=== PATIENT | male | born 1985 | race American Indian/Alaskan Native ===

== ENCOUNTER 2020-12-01 02:43 | Emergency (ER) | payer MEDICAID ==
--- NOTE | 2020-12-01 03:50 | Event Note ---
ED Screening Note Date of service: 12/01/20 Time: 03:50 ED Screening Note: Patient here with complaints of shoulder and hip pain due to sickle cell This initial assessment/diagnostic orders/clinical plan/treatment(s) is/are subject to change based on patients health status, clinical progression and re- assessment by fellow clinical providers in the ED. Further treatment and workup at subsequent clinical providers discretion. Patient/guardian urged not to elope from the ED as their condition may be serious if not clinically assessed and managed. Initial orders include: Labs
[2020-12-01 04:45] LABS: Hematocrit 30.4 % (35.5-45.6); Hemoglobin 10.1 gm/dl (11.8-15.2); Mean Corpuscular HGB Conc 33 % (32-34); Mean Corpuscular Volume 104 fl (84-94); Platelet Count 432 K/mm3 (140-440); Red Blood Count 2.94 M/mm3 (3.65-5.03); Red Cell Distribution Width 16.4 % (13.2-15.2)
[2020-12-01 04:47] LABS: Basophils % (Auto) 2.1 % (0.0-1.8); Eosinophils % (Auto) 2.5 % (0.0-4.3); Lymphocytes % (Auto) 42.5 % (13.4-35.0); Monocytes % (Auto) 11.9 % (0.0-7.3)
[2020-12-01 04:48] LABS: Basophils # (Auto) 0.2 K/mm3 (0.0-0.1); Eosinophils # (Auto) 0.3 K/mm3 (0.0-0.4); Lymphocytes # (Auto) 4.5 K/mm3 (1.2-5.4); Monocytes # (Auto) 1.3 K/mm3 (0.0-0.8)
[2020-12-01 05:00] LABS: Alanine Aminotransferase 15 units/L (7-56); Albumin 4.6 g/dL (3.9-5); BUN/Creatinine Ratio 13; Blood Urea Nitrogen 13 mg/dL (9-20); Hemolysis Index 10
[2020-12-01 06:54] LABS: Bilirubin,Urine NEG (Negative); Blood,Urine NEG (Negative); Color,Urine Yellow (Yellow); Protein,Urine <15 mg/dL mg/dL (Negative); WBC,Urine < 1.0 /HPF (0.0-6.0)
[2020-12-01] MEDS ORDERED: diphenhydrAMINE 50 MG/ML VIAL IV ONE (07:58)
[2020-12-01] MEDS ORDERED: ONDANSETRON 4 MG/2 ML INJ IV ONE (07:58)
[2020-12-01] MEDS ORDERED: KETOROLAC 30 MG/1 ML INJ IV ONE (07:58)
[2020-12-01] MEDS ORDERED: HYDROmorphone 1 MG/1 ML INJ IV ONE ×2 (07:58→10:20)
[2020-12-01] MEDS ORDERED: diphenhydrAMINE 50 MG/ML VIAL ONE (08:05)
--- NOTE | 2020-12-01 08:05 | Emergency Department Report ---
ED General Adult HPI - General Chief complaint: Sickle Cell Crisis Stated complaint: SICKLE CELL PAIN Time Seen by Provider: 12/01/20 07:49 Source: patient Mode of arrival: Ambulatory Limitations: No Limitations - History of Present Illness Initial comments: 35-year old male with a past medical history of sickle cell SS and chronic pain to bilateral shoulders and bilateral hips secondary to avascular necrosis presents to the hospital complaining of exacerbation of chronic shoulder and hip pain x1 week. Patient currently takes oxycodone 10 mg ER and Percocet 10/325 as prescribed by [facility]. Patient attempted to follow-up with [facility] but the wait was too long. Patient denies fever, cough, or shortness of breath. Pt did not take any of his meds this am. Severity scale (0 -10): 8 - Related Data Home Medications Medication Instructions Recorded Confirmed Last Taken Folic Acid [Folvite] 1 mg PO QDAY 06/30/15 12/01/20 Unknown Amlodipine Besylate [Norvasc] 5 mg PO DAILY 12/01/20 12/01/20 Unknown oxyCODONE ER [oxyCONTIN ER] 10 mg PO BID 12/01/20 12/01/20 Unknown Previous Rx's Medication Instructions Recorded Last Taken Type HYDROcodone/APAP 10-325 [[place] 1 each PO Q8HR PRN #20 tablet 07/01/15 Unknown Rx 10/325] Allergies Allergy/AdvReac Type Severity Reaction Status Date / Time ceftriaxone sodium Allergy Swelling Verified 06/30/15 20:34 [From Rocephin] morphine Allergy Swelling Verified 12/01/20 03:36 ED Review of Systems ROS: Stated complaint: SICKLE CELL PAIN Other details as noted in HPI Comment: All other systems reviewed and negative ED Past Medical Hx - Past Medical History Previous Medical History?: Yes Hx Hypertension: Yes Hx Sickle Cell Disease: Yes (type SS) - Surgical History Past Surgical History?: No - Social History Smoking Status: Never Smoker Substance Use Type: Marijuana - Medications Home Medications: Home Medications Medication Instructions Recorded Confirmed Last Taken Type Folic Acid [Folvite] 1 mg PO QDAY 06/30/15 12/01/20 Unknown History HYDROcodone/APAP 10-325 [[place] 1 each PO Q8HR PRN #20 tablet 07/01/15 12/01/20 Unknown Rx 10/325] Amlodipine Besylate [Norvasc] 5 mg PO DAILY 12/01/20 12/01/20 Unknown History oxyCODONE ER [oxyCONTIN ER] 10 mg PO BID 12/01/20 12/01/20 Unknown History ED Physical Exam - General Limitations: No Limitations - Other Other exam information: General: No acute distress Head: Atraumatic Eyes: normal appearance ENT: Moist mucous membranes Neck: Normal appearance, no midline tenderness Chest: Clear to auscultation bilaterally CV: Regular rate and rhythm Abdomen: Soft, normal bowel sounds, nontender, nondistended, no rebound or guarding Back: Normal inspection Extremity: Tenderness to bilateral joint space/anterior shoulder shoulders. Limited movement secondary to pain. Pain to bilateral hips worse with movement. Neuro: Alert O x 3, no facial asymmetry, speech clear, no gross motor sensory deficit Psych: Appropriate behavior Skin: No rash ED Course Vital Signs 12/01/20 12/01/20 12/01/20 03:34 07:28 07:29 Temperature 98.0 F Pulse Rate 74 73 Respiratory 20 16 16 Rate Blood Pressure 115/73 Blood Pressure [Right] O2 Sat by Pulse 100 100 Oximetry 12/01/20 12/01/20 12/01/20 07:37 07:51 08:18 Temperature Pulse Rate 71 70 69 Respiratory 16 16 Rate Blood Pressure Blood Pressure 129/84 126/81 134/85 [Right] O2 Sat by Pulse 100 100 Oximetry 12/01/20 12/01/20 12/01/20 09:08 09:44 10:26 Temperature Pulse Rate 68 71 88 Respiratory 16 16 16 Rate Blood Pressure Blood Pressure 117/78 117/78 113/79 [Right] O2 Sat by Pulse 100 99 99 Oximetry ED Medical Decision Making - Lab Data Result diagrams: 12/01/20 04:02 12/01/20 04:02 Lab Results 12/01/20 12/01/20 12/01/20 Range/Units 04:02 04:02 Unknown WBC 10.6 (4.5-11.0) K/mm3 RBC 2.94 L (3.65-5.03) M/mm3 Hgb 10.1 L (11.8-15.2) gm/dl Hct 30.4 L (35.5-45.6) % MCV 104 H (84-94) fl MCH 34 H (28-32) pg MCHC 33 (32-34) % RDW 16.4 H (13.2-15.2) % Plt Count 432 (140-440) K/mm3 Lymph % (Auto) 42.5 H (13.4-35.0) % [place] % (Auto) 11.9 H (0.0-7.3) % Eos % (Auto) 2.5 (0.0-4.3) % Baso % (Auto) 2.1 H (0.0-1.8) % Lymph # (Auto) 4.5 (1.2-5.4) K/mm3 [place] # (Auto) 1.3 H (0.0-0.8) K/mm3 Eos # (Auto) 0.3 (0.0-0.4) K/mm3 Baso # (Auto) 0.2 H (0.0-0.1) K/mm3 Seg Neutrophils % 41.0 (40.0-70.0) % Seg Neutrophils # 4.4 (1.8-7.7) K/mm3 Percent Retic 1.77 (0.78-2.58) % Sodium 140 (137-145) mmol/L Potassium 4.8 (3.6-5.0) mmol/L Chloride 104.2 (98-107) mmol/L Carbon Dioxide 25 (22-30) mmol/L Anion Gap 16 mmol/L BUN 13 (9-20) mg/dL Creatinine 1.0 (0.8-1.3) mg/dL Estimated GFR > 60 ml/min BUN/Creatinine Ratio 13 % Glucose 93 (75-100) mg/dL Calcium 10.0 (8.4-10.2) mg/dL Total Bilirubin 0.50 (0.1-1.2) mg/dL AST 21 (5-40) units/L ALT 15 (7-56) units/L Alkaline Phosphatase 88 (35-129) units/L Total Protein 7.5 (6.3-8.2) g/dL Albumin 4.6 (3.9-5) g/dL Albumin/Globulin Ratio 1.6 % Urine Color Yellow (Yellow) Urine Turbidity Clear (Clear) Urine pH 6.0 (5.0-7.0) Ur Specific [place] 1.011 (1.003-1.030) Urine Protein <15 mg/dl (Negative) mg/dL Urine Glucose (UA) Neg (Negative) mg/dL Urine Ketones Neg (Negative) mg/dL Urine Blood Neg (Negative) Urine Nitrite Neg (Negative) Urine Bilirubin Neg (Negative) Urine Urobilinogen 2.0 (<2.0) mg/dL Ur Leukocyte Esterase Neg (Negative) Urine WBC (Auto) < 1.0 (0.0-6.0) /HPF Urine RBC (Auto) 1.0 (0.0-6.0) /HPF - Medical Decision Making 35-year male with chronic AVN pain with acute exacerbation presents to the hospital with bilateral shoulder and bilateral hip pain. Labs do not appear to be consistent with acute sickle cell crisis. Patient treated with narcotic pain medication with relief and also provided a dose of his extended release tablet that he missed his a.m. Patient be encouraged to follow-up with his sickle cell doctor. He states he is supposed also follow-up with orthopedic doctor regarding a possible solution to his AVN related pain Critical Care Time: No Critical care attestation.: If time is entered above; I have spent that time in minutes in the direct care of this critically ill patient, excluding procedure time. ED Disposition Clinical Impression: Chronic pain, AVN (avascular necrosis of bone), Sickle cell anemia Disposition: - TO HOME OR SELFCARE Is pt being admited?: No Does the pt Need Aspirin: No Condition: Stable Instructions: Avascular Necrosis, Chronic Pain, Adult, Opioid Pain Medicine Management Additional Instructions: Take your current medication as prescribed. Follow-up with your doctor or doctor/clinic provided. Return if symptoms worsen as indicated by your discharge instructions. Referrals: PRIMARY CARE, [Primary Care Provider] - 3-5 Days your sickle cell [Other] - 3-5 Days your, orthopedic doctor [Other] - 3-5 Days Time of Disposition: 11:09
[2020-12-01] MEDS ORDERED: oxyCODONE ER 10 MG TAB PO ONE (11:04)
[2020-12-01 11:37] VITALS: BP 122/88
== END 2020-12-01 11:37 | disposition home or self-care (01) ==
LOC: ED 02:43
DX: D57.1 Sickle-cell disease without crisis (principal); M87.00 Idiopathic aseptic necrosis of unspecified bone; G89.29 Other chronic pain; I10 Essential (primary) hypertension; F12.90 Cannabis use, unspecified, uncomplicated; Z79.899 Other long term (current) drug therapy; Z88.8 Allergy status to other drugs, medicaments and biological substances; Z88.6 Allergy status to analgesic agent
CPT/HCPCS: 36415; 80053; 81001; 85025; 85045; 96374; 96375; 96376; 99284; J1170; J1200; J1885; J2405